=== PATIENT | male | born 1980 | race African-American/Black ===

== ENCOUNTER 2022-02-25 11:36 | Emergency (ER) | payer MEDICAID ==
[~2022-02-25] VITALS: Ht 175.3 cm; Wt 67.1 kg
--- NOTE | 2022-02-25 11:50 | NUR ---
BIBS W/ C/O R-SIDED TESTICULAR SWELLING NOTED LAST NIGHT AND GROIN AREA PAIN FOR MONTHS. PT A/O X4, AMBULATORY, TO ER BED 16.
--- NOTE | 2022-02-25 13:09 | NUR ---
DR MORALES AT BEDSIDE FOR EVAL.
--- NOTE | 2022-02-25 14:01 | NUR ---
Patient discharged to home in stable condition. Written and verbal after care instructions given. Patient verbalizes understanding of instruction.
[2022-02-25 14:02] VITALS: BP 115/85
== END 2022-02-25 14:02 | disposition home or self-care (01) ==
LOC: ER 12:03
DX: N43.3 Hydrocele, unspecified (principal)
CPT/HCPCS: 76870-TC

== ENCOUNTER 2024-10-22 14:22 | Emergency (ER) | payer MEDICAID, OTHER ==
[~2024-10-22] VITALS: Ht 175.3 cm; Wt 67.1 kg
[2024-10-22 15:34] LABS: BASOPHILS % (AUTO) 1.3 % (0.0-2.0); CALCIUM, SERUM 9.3 mg/dL (8.5-10.1); CARBON DIOXIDE 28 mmol/L (21-32); CHLORIDE 103 mmol/L (98-107); CREATININE 0.9 mg/dL (0.6-1.3); EOSINOPHILS % (AUTO) 0.5 % (0.0-6.0); GLUCOSE 85 mg/dL (74-106); HEMATOCRIT 41 % (39-51); HEMOGLOBIN 13.7 g/dL (13.5-17.5); LYMPHOCYTES # (AUTO) 0.6 K/uL (0.8-4.8); MEAN CORPUSCULAR HEMOGLOBIN 29 PG (26.0-33.0); MEAN CORPUSCULAR HGB CONC 34 g/dl (31.0-36.0); MEAN CORPUSCULAR VOLUME 87 fL (80-96); MONOCYTES # (AUTO) 0.1 K/uL (0.1-1.30); MONOCYTES % (AUTO) 6.4 % (2.0-12.0); NEUTROPHILS % (AUTO) 56.8 % (43.0-81.0); PLATELET COUNT (AUTO) 200 K/uL (150-450); POTASSIUM 4.1 mmol/L (3.5-5.1); RED BLOOD CELL COUNT(AUTO) 4.72 MIL/uL (4.5-6.0); RED CELL DISTRIBUTION WIDTH 13.3 % (11.5-15.0); SODIUM SERUM 139 mmol/L (136-145); UREA NITROGEN, BLOOD 21 mg/dL (7-18)
[2024-10-22 15:37] LABS: WHITE BLOOD COUNT (AUTO) 1.7 K/uL (4.3-11.0)
[2024-10-22 15:48] LABS: ALANINE AMINOTRANSFERASE 43 U/L (12-78); ALKALINE PHOSPHATASE 63 U/L (46-116); ASPARTATE AMINOTRANSFERASE 37 U/L (15-37); BILIRUBIN,DIRECT 0.1 mg/dL (0.0-0.2); BILIRUBIN,TOTAL 0.4 mg/dL (0.2-1.0); NT-PRO BNP 67 pg/mL (0-125); TOTAL PROTEIN, SERUM 7.3 g/dL (6.4-8.2)
[2024-10-22 17:01] LABS: EOSINOPHILS % (MANUAL) 2 % (0-4); LYMPHOCYTES % (MANUAL) 40 % (16-48); MONOCYTES % (MANUAL) 6 % (0-11.0); NEUTROPHILS % (MANUAL) 52 (42-76)
[2024-10-22 17:02] LABS: ANISOCYTOSIS 1+; PLATELET ESTIMATE ADEQUATE
[2024-10-22 18:12] VITALS: BP 110/68; TEMP 98.6; O2SAT 99
== END 2024-10-22 18:12 | disposition home or self-care (01) ==
LOC: ER 14:35
DX: R07.9 Chest pain, unspecified (principal); Z60.2 Problems related to living alone
CPT/HCPCS: 36415; 71045-TC; 80048-TC; 80076-TC; 83880; 84484-TC; 85025-TC; 85378-TC

== ENCOUNTER 2025-02-04 12:30 | Emergency (ER) | payer OTHER ==
[~2025-02-04] VITALS: Ht 175.3 cm; Wt 69.9 kg
[2025-02-04 13:40] LABS: CALCIUM, SERUM 9.1 mg/dL (8.5-10.1); CREATININE 1.0 mg/dL (0.6-1.3); SODIUM SERUM 135 mmol/L (136-145); UREA NITROGEN, BLOOD 20 mg/dL (7-18)
[2025-02-04 13:44] LABS: PLATELET COUNT (AUTO) 207 K/uL (150-450); RED BLOOD CELL COUNT(AUTO) 4.62 MIL/uL (4.5-6.0); RED CELL DISTRIBUTION WIDTH 13.0 % (11.5-15.0); WHITE BLOOD COUNT (AUTO) 2.5 K/uL (4.3-11.0)
[2025-02-04 16:25] VITALS: BP 108/71; TEMP 98; O2SAT 98
== END 2025-02-04 16:26 | disposition home or self-care (01) ==
LOC: ER 12:33
DX: R07.89 Other chest pain (principal); F41.9 Anxiety disorder, unspecified; F41.0 Panic disorder [episodic paroxysmal anxiety]; Z60.2 Problems related to living alone
CPT/HCPCS: 36415; 71045-TC; 80048-TC; 84484-TC; 85025-TC